=== PATIENT | female | born 1935 | race Caucasian/White ===

== ENCOUNTER → 2017-01-13 | Outpatient (CLI) | payer MEDICARE ==
[~2017-01-13] MED LIST: CALCIUM PO; FEOSOL325 MG PO; K-TAB 10MEQ10 MEQ PO; NORCO 5-325 TA1 EACH PO; THERA-VITE W/ B1 TAB PO; VALSARTAN-HCTZ1 EAC1 PO; VITAMIN D-32000 UNI1 PO; [UNRECOGNIZED DRUG - OTHER] PO
[2017-01-13 10:26] LABS: CREATININE 0.8 mg/dL (0.5-1.1)
== END | disposition disaster alternative care site (69) ==
LOC: GLAB 09:00
PROVIDERS: Neurological Surgery
DX: G93.9 Disorder of brain, unspecified (principal)
CPT/HCPCS: A9577

== ENCOUNTER 2017-01-22 11:00 | Inpatient (IN) | payer MEDICARE ==
[~2017-01-22] VITALS: Ht 165.1 cm; Wt 69.7 kg
--- NOTE | ~2017-01-22 | CON ---
PATIENT'S NAME: ABDULAZIZ [facility] AGE: 81 Y [address] ROOM: [place] [id number] LOCATION: GICU ADMIT DATE: 01/24/2017 Consultation DISCHARGE DATE: FAMILY PHYSICIAN: CHICA CHAND MD ATTENDING PHYSICIAN: Marisol Storm consult for Dr. Storm. 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 Storm, details on record. PHYSICAL EXAMINATION: NEUROLOGIC: She is now alert, fairly well oriented, able to comprehend and express without difficulty. Her speech is clear. She has no facial droop. No neglect. No visual difficulty. No double vision. Denied any dizziness. At the present time, she can speak. Her speech is clear and not wet. Cranial nerves 2 through 12 are within normal limits. She is able to comprehend, remember, and express without difficulty. Her voice is clear and not wet. She can move all 4 without much difficulty. She has good bowel and bladder so far. VITAL SIGNS: Vitals are stable and within normal limits. Please refer to the nurse's notes also. Blood pressure 125/70, temperature 99.0, pulse 93, and respiration rate 12. She is 5 feet 5 inches tall and weighs 69.7 kg. MEDICATIONS: She is on the following medications: 1. Multivitamin. 2. Hydrochlorothiazide. 3. Diovan. 4. Potassium chloride. 5. Ferrous sulfate. 6. Vitamin D. 7. NaCl 0.9%. 8. [place]. 9. Tylenol. 10. Albumin 5%. 11. Zofran. 12. Dilaudid. PATIENT'S NAME: ABDULAZIZ [facility] AGE: 81 Y [address] ROOM: [place] [address] LOCATION: [facility] ADMIT DATE: 01/24/2017 Consultation DISCHARGE DATE: FAMILY PHYSICIAN: CHICA CHAND MD ATTENDING PHYSICIAN: Marisol Storm 13. Morphine sulfate. 14. Fentanyl. 15. Keppra. ASSESSMENT AND PLAN: She has been initiated on PT and OT. I feel that she has done well. My advice would be that she should not drive until she is reevaluated if she is discharged and also to avoid alcohol for the time being. I will continue her on PT and OT, which have been already initiated. Did discuss all this with her family. She requires to be supervised for a while, and I will try to get her to rehab if she is not able to be discharged to go home. All the above was explained to her family in detail. They verbalized understanding and agreement. Thank you for this referral. I will be following alongside with you. MD KVNG CRUZ/modl /[id number] d: 01/25/17 1136 t: 01/26/17 0759, CONSULTATION REPORT
--- NOTE | ~2017-01-22 | OR ---
PATIENT'S NAME: ABDULAZIZ [facility] AGE: 81 Y [address] ROOM: [address] [address] LOCATION: [facility] ADMIT DATE: 01/24/2017 OR/Procedure Report DISCHARGE DATE: FAMILY PHYSICIAN: MONET FREITAS MD ATTENDING PHYSICIAN: Marisol Storm SURGEON: Marisol Storm MD STITCH BONDING MACHINE DRAWER IN: Elicia Prieto CST DATE OF PROCEDURE: 01/24/2017 PREOPERATIVE DIAGNOSIS: Right frontal brain tumor. POSTOPERATIVE DIAGNOSIS: Right frontal brain tumor. PROCEDURES PERFORMED: 1. Right frontal craniotomy and resection of tumor. 2. Use of stealth frameless stereotactic system for localization. 3. Use of ultrasound for tumor localization. ANESTHESIA: General. ANESTHESIA PROVIDER: Ariel Kinney MD HISTORY: The patient is an 81-year-old female who presented with left-sided weakness. MRI scan showed a right frontal enhancing lesion. Surgery was recommended to achieve diagnostic tissue and to help plan treatment. The procedure was conducted using the stealth frameless stereotactic system for accurate localization, knowing that the mass was close to the motor area. PROCEDURE IN DETAIL: In the operating room, the patient was placed in a supine position. Anesthesia was induced, and appropriate support lines were placed. Using the frameless stereotactic system, the lesion was localized. The hair around the surface marking was clipped. A small horseshoe-shaped incision was marked out. The hair was clipped. The whole area was prepped and draped in a sterile fashion. Local anesthesia was infiltrated along the incision line. The #10 blade was used to open the incision. The scalp was peeled back. A couple of bur holes were placed, and the bone flap was removed. There was a small amount of bleeding from the edge of the sagittal sinus. This was controlled using cottonoids and Gelfoam. The dura was opened, and again, the frameless stereotactic system was used to identify the location of the tumor. The ultrasound was also used to help show the shortest trajectory to the mass. A small corticectomy was performed, and following the tract showed by the frameless stereotactic system, the area of the mass was explored. A couple of biopsies were taken and sent for frozen section. The frozen section material PATIENT'S NAME: ABDULAZIZ [facility] AGE: 81 Y [address] ROOM: [id number] [place], [place] [id number] LOCATION: [facility] ADMIT DATE: 01/24/2017 OR/Procedure Report DISCHARGE DATE: FAMILY PHYSICIAN: MONET FREITAS MD ATTENDING PHYSICIAN: Marisol Storm came back confirming diagnostic tissue likely a high-grade malignancy. More tissue was removed from the area where the biopsy had been taken. This was a small lesion measuring about 1 x 1 cm, and the hope was that enough tissue will be obtained both for biopsy as well as for permanent section, and as much of the mass as possible was removed. It was not a very clearly defined mass, and it blended in with the brain, but as much as possible, all visually abnormal tissue was removed. Hemostasis was achieved. The dura was approximated. It was not possible to approximate the dura completely, and a small piece of DuraGen was used to cover the area where the dura could not be closed. The bone flap was then replaced. A series of holes were drilled around the edge of the bone flap, and another couple of holes were drilled around the craniotomy defect. Using these holes, sutures were passed from the bone flap to the skull, thereby reattaching the bone flap. The scalp was then closed with Vicryl. The skin was closed with nylon. A sterile dressing was applied. The patient's head was taken out of the [place] headholder. Her anesthesia was reversed. She was extubated and taken to the recovery room to complete her recovery. I was present at and performed every aspect of this procedure, assisted at some stages by the operating room nurses. There were no apparent intraoperative complications. Swabs, needles, and instruments were all accounted for at the end of the case. Estimated blood loss was less than 500 mL, and there was no reason for blood transfusion. The patient's prognosis is serious at this time given the provisional diagnosis of high-grade malignancy. Once we get the final report, Oncology will be consulted to assist with further treatment. MD CONTRERAS CHEWO/isaiah /[id number] CC: Monet Freitas MD d: 01/25/17 1617 t: 01/29/17 1409, OPERATIVE SUMMARY
[2017-01-22] MEDS ORDERED: VITAMIN D-32000 UNI1 PO (11:40)
[2017-01-22] MEDS ORDERED: VALSARTAN-HCTZ1 EAC1 PO (11:40)
[2017-01-22] MEDS ORDERED: THERA-VITE W/ B1 TAB PO (11:41)
[2017-01-22] MEDS ORDERED: CALCIUM PO (11:41)
[2017-01-22] MEDS ORDERED: FEOSOL325 MG PO (11:43)
[2017-01-22] MEDS ORDERED: K-TAB 10MEQ10 MEQ PO (13:06)
[2017-01-24 06:53] LABS: HEMATOCRIT 29.8 % (30.0-46.0); HEMOGLOBIN 10.4 g/dL (10.0-15.0); MCH 31.9 pg (27.0-34.0); MCHC 34.9 gm/dL (32.0-36.5); MCV 91.4 fl (83.0-98.0); MPV 9.6 fl (9.4-12.4); PLATELET COUNT 245 K/uL (150-450); RBC 3.26 M/uL (3.00-5.00); RDW-CV 14.6 % (11.9-14.6); WBC 3.4 K/uL (4.0-11.0)
[2017-01-24 07:06] LABS: INR - (THERAPEUTIC) 0.95 (0.92-1.07)
[2017-01-24 07:16] LABS: ALBUMIN 2.9 gm/dL (3.5-5.0); ANION GAP 12.6 (10.0-19.0); CALCIUM 8.1 mg/dL (8.5-10.5); CREATININE 0.7 mg/dL (0.5-1.1); POTASSIUM 3.6 mMol/L (3.7-5.1); TOTAL BILIRUBIN 0.6 mg/dL (0.0-1.5)
[2017-01-24 07:37] LABS: ABSOLUTE NEUTROPHIL CT (ANC) 1.7 K/uL (1.8-7.8); BANDED NEUTROPHIL # 0.2 K/uL (0.0-0.1); BANDED NEUTROPHILS % 5 %; LYMPHOCYTE # 1.1 K/uL (0.8-4.0); LYMPHOCYTE % 32 %; MONOCYTE # 0.6 K/uL (0.0-1.0); SEGMENTED NEUTROPHIL # 1.5 K/uL (1.8-7.8); SEGMENTED NEUTROPHIL % 45 %
--- NOTE | 2017-01-24 16:27 | NUR ---
Significant Event: Patient is A/O x3. Moves all extremeties spontaneously, with slight weakness in LLE. Had some blurred vision that resolved. PERRLA 2mm. SR with HRs 80s-90s. Lungs clear throughout, Sats >90% on 2L NC. Bowel sounds hypoactive, advance diet as tolerated. No BM. Gil with light yellow UOP, adequate. Follow up: Continue.
--- NOTE | 2017-01-24 17:01 | NUR ---
Pt is sleeping and had craniotomy today. I checked with nursing and family just left. She states pt is doing awesome. WIll continue to follow and assist with any discharge needs if needed.
[2017-01-24 18:15] LABS: BICARBONATE 23.1 mmol/L (18.0-23.0); PCO2 37 mmHg (35-45); PO2 278 mmHg (80-90)
[2017-01-24 18:16] LABS: POTASSIUM 3.4 mEq/L (3.7-5.1); SODIUM 141 mEq/L (135-145)
--- NOTE | 2017-01-25 05:45 | NUR ---
Pt slept on and off throughout shift. No changes from initial Neaurological Assessment. Denies H/A blurred vision of dizziness.
[2017-01-25] MEDS ORDERED: NORCO 5-325 TA1 EACH PO (13:16)
[2017-01-25] MEDS ORDERED: [UNRECOGNIZED DRUG - OTHER] PO (13:17)
--- NOTE | 2017-01-25 14:46 | NUR ---
1345 PATIENT DISCHARGED FROM UNIT TO HOME WITH FAMILY. PIVX2 D'C/D. RANDALL D/C'D. PATIENT DRESSED AND WHEELED DOWN TO CAR BY WHEELCHAIR BY RN. HAS DISCHARGE MEDS AND INSTRUCTIONS. WILL SEE [facility]ASI IN TWO WEEKS FOR FOLLOW UP AND REMOVAL OF SUTURES.
--- NOTE | 2017-01-25 14:48 | NUR ---
1200 BACK ON UNIT WITH TRANSPORT IN TOW.
--- NOTE | 2017-01-25 14:48 | NUR ---
1135 OFF UNIT TO MRI WITH TRANSPORT.
== END 2017-01-25 13:55 | disposition disaster alternative care site (69) | DRG 26 ==
LOC: GICU 01-24 05:44
PROVIDERS: ADMIT Neurological Surgery
PROC: 00B70ZX Excision of Cerebral Hemisphere, Open Approach, Diagnostic (ICD-10-PCS; principal; 2017-01-24)
DX: C71.1 Malignant neoplasm of frontal lobe (principal); G81.94 Hemiplegia, unspecified affecting left nondominant side
CPT/HCPCS: A9577; C1763; J0690; J1100; J1953; J2001; J2250; J2405; J7030; J7040